=== PATIENT | male | born 1965 | race Caucasian/White ===

== ENCOUNTER → 2018-10-02 10:32 | Outpatient (CLI) | payer BC ==
[2016-10-05 07:14] VITALS: BMI 28.9
[~2018-10-02 10:32] MED LIST: BAYER CHEWABLE81 MG PO; BRILINTA90 MG; BRILINTA90 MG PO; DIOVAN HCT 160/1 TAB PO; FISH OIL 1,0001 CA1 PO; LIPITOR40 MG PO; PRILOSEC10 M1 PO; SAW PALMETTO450 MG PO; TOPROL XL25 MG; UNISOM; VITAMIN B-122500 MCG
== END | disposition home or self-care (01) ==
LOC: D.HCCARDIO 10:32
DX: I25.10 Atherosclerotic heart disease of native coronary artery without angina pectoris (principal)

== ENCOUNTER 2018-10-24 06:57 | Outpatient (CLI) | payer BC ==
[~2018-10-24] VITALS: Ht 188 cm; Wt 104.5 kg
--- NOTE | ~2018-10-24 | HEMODYNAMI ---
PATIENT:ESTEFANI BRAUN MEDICAL RECORD: [id number] : 69 LOCATION:D.CAT ADMISSION DATE: 10/24/18 Generatedon:10/24/20189:51 Patient name: ESTEFANI BRAUN Patient #: [id number] SSN: : 1965 Date of study: 10/24/2018 Page: Of Hemodynamic Procedure Report Patient Data Patient Demographics Procedure consent was obtained First Name: ESTEFANI Gender: Male Last Name: KADE : 1965 [facility] Initial: ANTHONY Age: 53 year(s) Patient #: [id number] Race: Additional ID: [id number] Contact details [address]: [address] [place] [address] State: [place] City: [place] Zip code: [address] Past Medical History Allergies: No known allergies Admission Admission Data Admission Date: 10/24/2018 Admission Time: 6:57 Weight (lbs.): 231.49 Weight (kg.): 105 Lab Results Lab Result Date: 10/24/2018 Lab Result Time: 0:00 Biochemistry Name Units Result Min Max BUN mg/dl 19 --(----)*- 7 18 Creatinine mg/dl 1 --(--*-)-- 0.6 1.3 CBC Name Units Result Min Max Hemoglobin g/dl 18.3 --(----)*- 13.5 17.5 Procedure Procedure Types Cath Procedure Diagnostic Procedure [facility] Procedure Description Procedure Date Procedure Date: 10/24/2018 Procedure Start Time: 9:29 Procedure End Time: 9:45 Procedure Staff Name Function Daniel Ji MD Performing Physician Darin Duong RT Monitor Kaz Rizzo RT Scrub Tre Sandoval RN Nurse Procedure Data Cath Procedure Fluoroscopy Diagnostic fluoroscopy Total fluoroscopy Time: 1.8 time: 1.8 min min Diagnostic fluoroscopy Total fluoroscopy dose: 600 dose: 600 mGy mGy Contrast Material Contrast Material Type Amount (ml) Isovue 300 62 Entry Location Entry Primary Successful Side Size Upsize Upsize Entry Closure Cooper ccessful Closure Location (Fr) 1 (Fr) 2 (Fr) Remarks Device Remarks Radial Right 6 Fr Mechanical artery Short Compression Estimated blood loss: 10 ml Diagnostic catheters Device Type Used For End Catheter Placement DIAGNOSTIC Gopal 110cm Procedure 5Fr catheter ([id number]) Procedure Complications No complications Procedure Medications Medication Administration Route Dosage Oxygen etCO2 Nasal cannula 2 l/min Lidocaine 2% added to field 20 Heparin Flush Bag added to field 2 bags (1000units/500ml NS) 0.9% NaCl I.V. 100 ml/hr Radial Cocktail I.A. 1 syringe (Verapomil 2mg/Nitro 400mcg/Heparin 1500units) Versed I.V. 2 mg Fentanyl I.V. 100 mcg Versed I.V. 2 mg Fentanyl I.V. 100 mcg Fentanyl I.V. 100 mcg Versed I.V. 2 mg Hemodynamics Rest HGB: 18.3 (g/dl) Heart Rate: 77 (bpm) Pressure Samples Time Site Value (mmHg) Purpose Heart Use Rate(bpm) 9:32 LV 167/-17,7 Snapshot 85 9:33 AO 145/86(111) Pullback 90 9:33 LV 204/-12,26 Pullback 90 9:34 AO 121/77(96) Snapshot 81 9:40 AO 128/80(101) Snapshot 87 Gradients Valve Time Site 1 Site 2 Mean SEP/DFP Peak To Heart Use (mmHg) (sec/min) Peak Rate (mmHg) (bpm) Aortic 9:33 LV AO 19 20 59 90 204/-12,26 145/86(111) Calculations Valve P-P Mean Valve Index Valve Source Name Gradient Area Flow (cm2) Aortic 59 19 59 19 Snapshots Pre Cath Intra NCS Post Cath Vital Signs Time Heart Resp SPO2 etCO2 NIBP (mmHg) Rhythm Pain Sedation Rate (ipm) (%) (mmHg) Status Level (bpm) 9:24:09 84 13 94 25.8 142/85(107) NSR 0 (11) 10(A) , No pain 9:28:33 75 13 91 16.7 154/80(105) NSR 0 (11) 10(A) , No pain 9:34:01 84 18 90 25.8 138/74(104) NSR 0 (11) 9(A) , No pain 9:38:25 88 15 95 46.3 133/84(113) NSR 0 (11) 10(A) , No pain 9:42:49 78 16 95 43.2 129/80(117) NSR 0 (11) 10(A) , No pain Medications Time Medication Route Dose Verified Delivered Reason Notes Effectiveness by by 9:21:41 Oxygen etCO2 2 l/min Daniel Daniel used for Nasal Garrison Ji MD procedure cannula 9:22:05 Lidocaine 2% added 20ml Daniel Daniel for local to vial Garrison Ji MD anesthetic field 9:22:13 Heparin Flush added 2 bags Daniel Daniel used for Bag to Garrison Ji MD procedure (1000units/500ml field NS) 9:22:50 0.9% NaCl I.V. 100 Daniel Buffie Per ml/hr Garrison Sandoval RN physician 9:26:55 Versed I.V. 2 mg Daniel Buffie for sedation Garrison Sandoval RN 9:27:01 Fentanyl I.V. 100 mcg Daniel Buffie for sedation Garrison Sandoval RN 9:30:37 Versed I.V. 2 mg Daniel Buffie for sedation Garrison Sandoval RN 9:30:41 Fentanyl I.V. 100 mcg Daniel Buffie for sedation Garrison Sandoval RN 9:31:30 Radial Cocktail I.A. 1 Adniel Daniel for (Verapomil syringe Garrison Ji MD vasodilation 2mg/Nitro 400mcg/Heparin 1500units) 9:34:37 Fentanyl I.V. 100 mcg Daniel Buffie for sedation Garrison Sandoval RN 9:39:46 Versed I.V. 2 mg Daniel Buffie for sedation Garrison Sandoval RN Procedure Log Time Note 8:53:13 Patient Weight : 231.49 lbs 8:53:56 Lab Result : Hemoglobin 18.3 g/dl 8:53:56 Lab Result : Creatinine 1 mg/dl 8:53:56 Lab Result : BUN 19 mg/dl 8:55:26 Darin Duong RT(R) sent for patient. Start room use. 9:03:10 Diagnostic Cath status Elective 9:03:11 Time tracking: Regular hours (M-F 7:00 - 5:00) 9:03:15 Plan of Care:Hemodynamics will remain stable., Cardiac rhythm will remain stable., Comfort level will be maintained., Respiratory function will remain adequate., Patient/ family verbilizes understanding of procedure., Procedure tolerated without complication., Recovers from procedure without complications.. 9:03:46 H&P Date Dictated: 10/24/2018 New H&P dictated by physician.. 9:09:49 Patient received from Pre/Post Procedure Room to CCL 1 Alert and oriented. Tansferred to table in Supine position. 9:09:50 Warm blankets applied, and valentino hugger turned on for patient comfort. 9:09:51 Correct patient and procedure confirmed by team. 9:09:52 Signed procedure consent form obtained from patient. 9:09:53 ECG and BP/O2 sat monitors applied to patient. 9::54 Pre-procedure instructions explained to patient. 9::54 Pre-op teaching completed and patient verbalized understanding. 9:09:56 Family in waiting room. 9:09:57 Patient NPO since Midnight. 9:21:41 Oxygen 2 l/min etCO2 Nasal cannula was administered by Daniel Ji MD; used for procedure; 9:22:05 Lidocaine 2% 20ml vial added to field was administered by Daniel Ji MD; for local anesthetic; 9:22:13 Heparin Flush Bag (1000units/500ml NS) 2 bags added to field was administered by Daniel Ji MD; used for procedure; 9:22:50 0.9% NaCl 100 ml/hr I.V. was administered by Tre Sandoval RN; Per physician; 9:22:51 Vital chart was started 9:23:04 Baseline sample Acquired. 9:23:09 Rhythm: sinus rhythm 9:23:11 Full Disclosure recording started 9:23:14 Is the patient allergic to Iodine/contrast media? No. 9:23:15 Is patient on blood thinner?No 9:23:17 Patient diabetic? No. 9:23:20 Previous problem with sedation/anesthesia? No ? 9:23:21 Snore? Yes 9:23:22 Sleep apnea? No 9:23:23 Deviated septum? No 9:23:29 Opens mouth fully? Yes 9:23:30 Sticks out tongue? Yes 9:23:32 Airway obstruction? No ? 9:23:35 Dentures? No ? 9:23:38 Pre procedure: right dorsailis pedis pulse 1+ Palpable, but thready & weak; easily obliterated 9:23:40 Modified Vikas's test Ulnar < 7 seconds 9:23:42 Patient pain scale 0/10 ?. 9:23:50 IV patent on arrival in left antecubital with 0.9% NaCl at [facility]. 9:23:52 Lab results completed and on chart. 9:23:55 Right Radial & Right Groin area was prepped with chlora-prep and draped in sterile fashion 9:23:56 Alarms reviewed by R. N. 9:23:57 Sharps counted by scrub and verified by R.N. 9:24:01 Use device set Radial Dx or PCI 9:24:04 Tegaderm 4 x 4 ([id number]) opened to sterile field. 9:24:05 ACIST Manifold (27542) opened to sterile field. 9:24:05 ACIST Hand Control (33047) opened to sterile field. 9:24:07 ACIST Syringe (51815) opened to sterile field. 9:24:07 Medline Cath Pack ([id number]) opened to sterile field. 9:24:07 Bag Decanter (2002S) opened to sterile field. 9:24:08 DIAGNOSTIC WIRE .035 260cm J wire (905954) opened to sterile field. 9:24:08 MBrace Wrist Support ([id number]) opened to sterile field. 9:24:09 NEEDLE Cook 21G 4cm Radial ([id number]) opened to sterile field. 9:24:10 SHEATH 6FR Slender (37-5541) opened to sterile field. 9:24:27 --------ALL STOP TIME OUT------ 9:24:28 Final Timeout: patient, procedure, and site verified with staff and physician. All members of the team are in agreement. 9:24:31 Right Radial & Right Groin site verified by team. 9:24:33 Physical assessment completed. ASA score P 2 - A patient with mild systemic disease as per Daniel Ji MD. 9:24:36 Sedation plan: IV Moderate Sedation Medication:Versed, Fentanyl 9:26:55 Versed 2 mg I.V. was administered by Tre Sandoval RN; for sedation; 9:27:01 Fentanyl 100 mcg I.V. was administered by Tre Sandoval RN; for sedation; 9:29:47 Procedure started. 9:29:54 Local anesthetic to right radial artery with Lidocaine 2% by Daniel Ji MD.INITIAL ACCESS ONLY 9:30:37 Versed 2 mg I.V. was administered by Tre Sandoval RN; for sedation; 9:30:41 Fentanyl 100 mcg I.V. was administered by Tre Sandoval RN; for sedation; 9::54 A 6 Fr Short sheath was inserted into the Right Radial artery 9:31:30 Radial Cocktail (Verapomil 2mg/Nitro 400mcg/Heparin 1500units) 1 syringe I.A. was administered by Daniel Ji MD; for vasodilation; 9:32:01 A DIAGNOSTIC Bapul 110cm 5Fr catheter ([id number]) was advanced over the wire and used for Procedure. 9:32:58 LV angiography performed. 9:32:59 LV gram done using GOLDMAN 9:33:21 EF : 60 % 9:33:23 LV hemodynamics recorded. 9:33:32 Injector settings: Ml/sec: 5, Volume: 10, 9:33:45 LCA angiography performed. 9:34:37 Fentanyl 100 mcg I.V. was administered by Tre Sandoval RN; for sedation; 9:34:51 RCA angiography performed. 9:39:46 Versed 2 mg I.V. was administered by Tre Sandoval RN; for sedation; 9:40:37 Catheter exchanged over wire. 9:40:39 TR BAND Standard ([id number]) opened to sterile field. 9:40:54 Sheath removed intact; hemostasis achieved with Mechanical Compression to the Right Radial artery. 9:41:30 Procedure ended.(Physican Out) 9:42:44 Fluoroscopy time 01.80 minutes. 9:42:47 Fluoroscopy dose: 600 mGy 9:42:47 Flurop Dose total: 600 9:42:51 Contrast amount:Isovue 300 62ml. 9:42:52 Sharps counted by scrub and verified by R.N. 9:42:55 TR band inflated with 10cc of air. 9:42:56 Insertion/operative site no bleeding no hematoma. 9:42:58 Post Procedure Pulses reassessed and unchanged 9:43:01 Post-procedure physical assessment completed. ASA score P 2 - A patient with mild systemic disease as per Daniel Ji MD. 9:43:03 Post procedure rhythm: unchanged. 9:43:11 Estimated blood loss: 10 ml 9:43:17 Post procedure instruction explained to patient.Patient verbalizes understanding. 9:43:18 Patient needs reinforcement of post procedure teaching. 9:43:53 Procedure and supply charges have been captured, reviewed, submitted and are correct. 9:43:58 Procedure Complication : No complications 9:44:51 Vital chart was stopped 9:44:51 See physician's report for complete and final results. 9:44:54 Report given to Pre/Post Procedure Room. 9:44:57 Patient transfered to Pre/Post Procedure Room with Stretcher. 9:44:59 Procedure ended. 9:44:59 Full Disclosure recording stopped 9:45:06 End room use (Document Last) Device Usage Item Name Manufacture Quantity Catalog Hospital Part Current Minimal Lot# / Number Charge Number Stock Stock Serial# Code Tegaderm 4 1 1626W 105888 710873 219329 5 x 4 (1626W) ACIST Acist 1 62171 950345 265566 370725 5 Manifold Medical (06485) Systems Inc ACIST Hand Acist 1 91134 859311 675384 537924 5 Control Medical (26856) Systems Inc ACIST Acist 1 64012 765250 086976 707450 20 Syringe Medical (16633) Systems Inc Medline Medline 1 [id number] 029886 02295 641990 5 Cath Pack ([id number]) Bag Microtek 1 2001S 119977 00845 583931 5 Decanter Medical Inc. (2001S) DIAGNOSTIC [facility] 1 717890 833821 317241 572058 30 WIRE .035 260cm J wire (707557) MBrace Advanced 1 140-0250-00 463088 11328 021552 5 Wrist Vascular Support Dynamics ([id number]) NEEDLE Universal Robotics Medical 1 X52655 974371 607583 593436 5 21G 4cm Radial (U44124) SHEATH 6FR Terumo 1 [id number] 067415 946971 272595 5 Slender (80-1060) DIAGNOSTIC Terumo 1 40-3482 767571 399552 145339 5 Gopal 110cm 5Fr catheter (836088) TR BAND Terumo 1 [id number] 459631 214178 424537 40 Standard ([id number]) Signature Audit [place] Stage Time Signature Unsigned Intra-Procedure 10/24/2018 Darin Duong 9:51:10 AM RT(R) Signatures Monitor : Darin Duong RT Signature : Date : Time : [place] [id number] [place] [address]
[2018-10-24 07:24] VITALS: BP 141/79; Ht 188 cm; Wt 104.5 kg
[2018-10-24 07:46] LABS: CALC OSMOLALITY 287 mosm/kg (275-300); CALCIUM 9.7 mg/dL (8.5-10.1); CARBON DIOXIDE 25.1 mmol/L (21.0-32.0); CHLORIDE - SERUM 104 mmol/L (98-107); GLUCOSE 120 mg/dL (74-106); POTASSIUM - SERUM 3.9 mmol/L (3.5-5.1); SODIUM 143 mmol/L (136-145); UREA NITROGEN 19 mg/dL (7-18); eGFR NON AFRICAN AMERICAN 84 mL/min (90-120)
[2018-10-24 07:53] LABS: HEMATOCRIT 50.4 % (42.0-54.0); HEMOGLOBIN 18.3 g/dL (13.5-17.5); LYMPHOCYTES 28.9 % (15-50); MCH 33.8 pg (26.0-34.0); MCHC 36.3 g/dL (31.0-37.0); MCV 93.2 fL (80.0-100.0); MEAN PLATELET VOLUME 9.7 fL (7.4-10.4); NEUTROPHILS 64.1 % (40-80); PLATELET COUNT 129 10x3/uL (130-400); RBC 5.41 10x6/uL (4.20-6.10); RDW 12.5 % (11.5-14.5); WBC 9.7 10x3/uL (4.8-10.8)
--- NOTE | 2018-10-24 10:17 | NUR ---
1000 PT IS ALERT, DENIES ANY C/O. SANDWICH AND PO FLUIDS SERVED. TR BAND IS CDI, FINGERS WARM AND CAP REFILL IS BRISK. RADIAL PULSE PALPABLE. AT BEDSIDE, VSS. 1015 PT REQUESTS ADDITIONAL PO FLUIDS AND THIS SERVED. TR BAND IS CDI, PULSE PALPABLE TO RIGHT HAND, FINGERS WARM AND CAP REFILL IS BRISK. FRANCISCO SANDWICH WITH NO C/O NAUSEA.
--- NOTE | 2018-10-24 10:43 | NUR ---
PT SLEEPING, RESP WITH EASE ON ROOM AIR. NSR, RATE IS 66, BP IS 110/42. TR BAND CDI, FINGERS WARM AND PULSES PALPABLE. AT BEDSIDE, CALL LIGHT IN REACH.
--- NOTE | 2018-10-24 11:07 | NUR ---
3 CC OF AIR WEANED FROM TR ABND WITH NO BLEEDING NOTED. FINGERS WARM AND CAP REFILL IS BRISK. AT BEDSIDE. CALL LIGHT IN REACH.
--- NOTE | 2018-10-24 11:31 | NUR ---
4 CC OF AIR WEANED FROM TR BAND WITH NO BLEEDING NOTED. PULSES PALPABLE. VSS. PT DENIES ANY C/O.
--- NOTE | 2018-10-24 12:59 | NUR ---
1155 ALL REMAINING AIR WEANED FROM TR BAND WITH NO BLEEDING NOTED. PULSES PALPABLE, CAP REFILL IS BRISK. PT DENIES ANY C/O. IV DC'D WITH CATH INTACT AND PT DRESSING FOR DC TO HOME WITH ASSIST. 1215 PT HAS DRESSED FOR DC TO HOME. 2X2 AND TEGADERM CDI TO RIGHT WRIST. PT AMBULATED TO THE BATHROOM AND VOIDED QS. 1225 DC INSTRUCTIONS REVIEWED WITH PT AND WHO VEBALIZE UNDERSTANDING. DRESSING CDI TO RIGHT WRIST. PULSES PALPABLE, FINGERS WARM, PT DENIES ANY NV DEFICIT. PT ESCORTED TO PRIVATE AUTO VIA WC BY NURSE WITH DRIVING HIM HOME.
== END 2018-10-24 12:25 | disposition home or self-care (01) ==
LOC: D.CATH 06:57
PROVIDERS: Internal Medicine Cardiovascular Disease
DX: I25.110 Atherosclerotic heart disease of native coronary artery with unstable angina pectoris (principal); R94.30 Abnormal result of cardiovascular function study, unspecified; E78.5 Hyperlipidemia, unspecified; I10 Essential (primary) hypertension

== ENCOUNTER → 2021-02-11 08:05 | Outpatient (CLI) | payer BC ==
[2018-10-24 07:24] VITALS: BMI 29.6
== END | disposition home or self-care (01) ==
LOC: D.HCCARDIO 08:05
PROVIDERS: ATTEND Internal Medicine Cardiovascular Disease
DX: I10 Essential (primary) hypertension (principal)

== ENCOUNTER 2021-02-16 11:47 | Day surgery (SDC) | payer BC ==
[~2021-02-16] VITALS: Ht 188 cm; Wt 114.6 kg
--- NOTE | ~2021-02-16 | HEMODYNAMI ---
PATIENT:ESTEFANI BRAUN MEDICAL RECORD: [id number] : 69 LOCATION:[facility] ADMISSION DATE: 02/16/21 Generatedon:114:33 Patient name: ESTEFANI BRAUN Patient #: [id number] SSN: : 1965 Date of study: 02/16/2021 Page: Of Hemodynamic Procedure Report Patient Data Patient Demographics Procedure consent was obtained First Name: ESTEFANI Gender: Male Last Name: KADE : 1965 Middle Initial: ANTHONY Age: 55 year(s) Patient #: [id number] Race: Additional ID: [id number] Contact details [address]: [address] [place] [address] State: [place] City: [place] Zip code: [address] Past Medical History Allergies: No known allergies Admission Admission Data Admission Date: 02/16/2021 Admission Time: 11:47 Admit Source: Other Insurance Payor: Private health insurance Height (in.): 74 BSA: 2.4 (m2) Height (cm.): 187.96 BMI: 32.45 (kg/m2) Weight (lbs.): 252.72 Weight (kg.): 114.63 Lab Results Lab Result Date: 02/16/2021 Lab Result Time: 0:00 Biochemistry Name Units Result Min Max Creatinine mg/dl 1 --(--*-)-- 0.6 1.3 CBC Name Units Result Min Max Hemoglobin g/dl 17.5 --(---*)-- 13.5 17.5 Procedure Procedure Types Cath Procedure Diagnostic Procedure LHC LHC w/Coronaries FFR/IVUS FFR Initial FFR Additional Aortic Root Angiography Sedation Charges Moderate Sedation 10-24 minutes Procedure Description Procedure Date Procedure Date: 02/16/2021 Procedure Start Time: 14:06 Procedure End Time: 14:31 Procedure Staff Name Function Daniel Ji MD Performing Physician Gladys Michele RT Monitor Tre Sandoval RN Nurse Demar Ruiz RN Nurse Radha Indra RT Scrub Procedure Data Cath Procedure Fluoroscopy Diagnostic fluoroscopy Total fluoroscopy Time: 5.4 time: 5.4 min min Diagnostic fluoroscopy Total fluoroscopy dose: 957 dose: 957 mGy mGy Contrast Material Contrast Material Type Amount (ml) Isovue 370 66 Entry Location Entry Primary Successful Side Size Upsize Upsize Entry Closure Succes sful Closure Location (Fr) 1 (Fr) 2 (Fr) Remarks Device Remarks Radial Right 6 Fr Exoseal artery Short Estimated blood loss: 5 ml Diagnostic catheters Device Type Used For End Catheter Placement DIAGNOSTIC [place] 110cm 5 LV Angiography Fr catheter ([id number]) DIAGNOSTIC [place] 110cm 5 Left Coronary Fr catheter (658506) Angiography DIAGNOSTIC [place] 110cm 5 Right Coronary Fr catheter (257888) Angiography DIAGNOSTIC Pigtail 5Fr Aortic Root catheter ([id number]) Angiography Procedure Complications No complications Procedure Medications Medication Administration Route Dosage 0.9% NaCl I.V. 100 ml/hr Heparin Flush Bag added to field 2 bags (1000units/500ml NS) Lidocaine 2% added to field 20 Oxygen etCO2 Nasal cannula 2 l/min Radial Cocktail added to field 1 syringe (Verapamil 2mg/Nitro 400mcg/Heparin 1500units) Fentanyl I.V. 50 mcg Versed I.V. 1 mg Fentanyl I.V. 50 mcg Versed I.V. 1 mg Versed I.V. 1 mg Fentanyl I.V. 50 mcg Fentanyl I.V. 50 mcg Versed I.V. 1 mg Heparin Bolus 5000 units Hemodynamics Rest BSA: 2.4 (m2) HGB: 17.5 (g/dl) O2 Consumption: Estimated: 275.55 (ml/min) O2 Con sumption indexed: Estimated:114.81 (ml/min/m) Heart Rate: 59 (bpm) Pressure Samples Time Site Value (mmHg) Purpose Heart Use Rate(bpm) 14:09 LV 66/-13,66 Snapshot 86 Gradients Valve Time Site Site Mean SEP/DFP Peak To Heart Use 1 2 (mmHg) (sec/min) Peak Rate (mmHg) (bpm) Aortic 14:09 LV AO 63 Snapshots Pre Cath Intra NCS Post Cath Vital Signs Time Heart Resp SPO2 etCO2 NIBP (mmHg) Rhythm Pain Sedation Rate (ipm) (%) (mmHg) Status Level (bpm) 13:37:58 56 19 97 34.6 149/87(119) SB 0 (11) 10(A) , No pain 13:42:25 58 14 96 36.9 144/87(111) SB 0 (11) 10(A) , No pain 13:46:47 58 15 94 36.8 146/89(110) SB 0 (11) 10(A) , No pain 13:51:09 57 14 94 36.1 146/92(121) SB 0 (11) 10(A) , No pain 13:55:37 57 16 95 36.1 143/85(113) SB 0 (11) 10(A) , No pain 13:59:59 59 13 94 36.9 132/81(108) SB 0 (11) 10(A) , No pain 14:04:22 57 16 94 32.4 143/87(123) SB 0 (11) 10(A) , No pain 14:08:52 132 13 93 38.4 124/80(94) ST 0 (11) 10(A) , No pain 14:13:12 66 12 93 42.1 142/84(110) NSR 0 (11) 10(A) , No pain 14:17:42 60 11 94 40.7 134/76(114) NSR 0 (11) 10(A) , No pain 14:22:07 68 12 94 39.9 145/81(114) NSR 0 (11) 10(A) , No pain 14:26:33 60 14 95 39.9 143/76(110) NSR 0 (11) 10(A) , No pain 14:30:57 96 40.6 136/78(109) NSR 0 (11) 10(A) , No pain Medications Time Medication Route Dose Verified Delivered Reason Not es Effectiveness by by 13:36:55 0.9% NaCl I.V. 100 Daniel Demar used for ml/hr Garrison Ruiz boat engines installer 13:37:09 Heparin Flush added 2 bags Daniel Daniel used for Bag to Garrison Ji MD procedure (1000units/500ml field NS) 13:37:38 Lidocaine 2% added 20ml Daniel Daniel for local to vial Garrison Ji MD anesthetic field 13:37:57 Oxygen etCO2 2 l/min Daniel Demar used for Nasal Garrison Ruiz boat engines installer cannula 13:43:31 Radial Cocktail added 1 Daniel Daniel used for (Verapamil to syringe Garrison Ji MD procedure 2mg/Nitro field 400mcg/Heparin 1500units) 14:03:12 Fentanyl I.V. 50 mcg Daniel Demar for sedation Garrison Ruiz RN 14:03:22 Versed I.V. 1 mg Daniel Demar for sedation Garrison Ruiz RN 14:06:02 Fentanyl I.V. 50 mcg Daniel Demar for sedation Garrison Ruiz RN 14:06:08 Versed I.V. 1 mg Daniel Demar for sedation Garrison Ruiz RN 14:07:39 Versed I.V. 1 mg Daniel Demar for sedation Garrison Ruiz RN 14:07:42 Fentanyl I.V. 50 mcg Daniel Demar for sedation Garrison Ruiz RN 14:13:47 Fentanyl I.V. 50 mcg Daniel Demar for sedation Garrison Ruiz RN 14:13:52 Versed I.V. 1 mg Daniel Demar for sedation Garrison Ruiz RN 14:19:29 Heparin Bolus 5000 Daniel Demar for korey ified units Garrison Ruiz RN anticoagulation per florence vaughanharness brusher Log Time Note 13:25:06 Tre Sandoval RN sent for patient. Start room use. 13:29:13 Patient Height : 74 inches 13:29:21 Patient Weight : 252.72 lbs 13:29:28 Admit Source: Other 13:29:35 Insurance Payor : Private health insurance 13:30:04 Procedure Status Elective Heart Cath (OP). 13:30:12 Time tracking: Regular hours (M-F 7:00 - 5:00) 13:30:21 Plan of Care:Hemodynamics will remain stable., Cardiac rhythm will remain stable., Comfort level will be maintained., Respiratory function will remain adequate., Patient/ family verbilizes understanding of procedure., Procedure tolerated without complication., Recovers from procedure without complications.. 13:30:28 Patient received from Pre/Post Procedure Room to CCL 1 Alert and oriented. Tansferred to table in Supine position. 13:30:30 Signed procedure consent form obtained from patient. 13:30:31 Warm blankets applied, and valentino hugger turned on for patient comfort. 13:30:31 Correct patient and procedure confirmed by team. 13:30:32 ECG and BP/O2 sat monitors applied to patient. 13:30:34 Full Disclosure recording started 13:30:46 H&P Date Dictated: 01/21/2021 Within 30 days and on chart., H&P Addendum completed by physician on day of procedure. (MUST COMPLETE FOR ALL OUTPATIENTS). 13:30:47 Pre-procedure instructions explained to patient. 13:30:48 Pre-op teaching completed and patient verbalized understanding. 13:30:50 Family in waiting room. 13:30:52 Patient NPO since Midnight. 13:31:02 Patient allergic to No known allergies 13:31:04 Is the patient allergic to Iodine/contrast media? No. 13:31:07 Is patient on blood thinner?No 13:31:14 Patient diabetic? No. 13:31:19 Snore? Yes 13:31:21 Sleep apnea? No 13:31:23 Previous problem with sedation/anesthesia? No ? 13:31:39 Deviated septum? No 13:31:40 Opens mouth fully? Yes 13:31:40 Sticks out tongue? Yes 13:31:55 Airway obstruction? Yes Sleep apnea 13:32:00 Dentures? No ? 13:32:03 Pre procedure: right dorsailis pedis pulse 2+ Normal; easily identifiable; not easily obliterated 13:32:10 Modified Vikas's test Ulnar < 7 seconds 13:32:12 Patient pain scale 0/10 ?. 13:32:20 IV patent on arrival in left hand with 0.9% NaCl at [facility]. 13:32:32 Lab results completed and on chart. 13:32:52 Lab Result : Creatinine 1 mg/dl 13:32:52 Lab Result : Hemoglobin 17.5 g/dl 13:36:37 Vital chart was started 13:36:55 0.9% NaCl 100 ml/hr I.V. was administered by Demar Ruiz RN; used for procedure; Verbal order read back and verified. 13:37:09 Heparin Flush Bag (1000units/500ml NS) 2 bags added to field was administered by Daniel Ji MD; used for procedure; Verbal order read back and verified. 13:37:38 Lidocaine 2% 20ml vial added to field was administered by Daniel Ji MD; for local anesthetic; Verbal order read back and verified. 13:37:57 Oxygen 2 l/min etCO2 Nasal cannula was administered by Demar Joseph RN; used for procedure; Verbal order read back and verified. 13:39:08 Bleeding risk 0.6%. 13:39:38 Stress Test: yes; abnormal reversible inferior and apical defect 13:39:42 Risk of Mortality: 0.1 13:39:45 Risk of blood transfusion: 0.1 13:39:48 Risk of KOFI: 0.6 13:40:16 Right Radial & Right Groin area was prepped with chlora-prep and draped in sterile fashion 13:40:18 Alarms reviewed by R. N. 13:40:19 Sharps counted by scrub and verified by R.N. 13:42:52 Baseline sample Acquired. 13:42:58 Use device set Radial Dx or PCI 13:42:59 ACIST Syringe (62301) opened to sterile field. 13:42:59 Medline Cath Pack ([id number]) opened to sterile field. 13:43:00 Bag Decanter (2002S) opened to sterile field. 13:43:00 ACIST Hand Control (76708) opened to sterile field. 13:43:01 ACIST Manifold (08531) opened to sterile field. 13:43:02 MBrace Wrist Support ([id number]) opened to sterile field. 13:43:03 NEEDLE Cook 21G 4cm Radial (O16701) opened to sterile field. 13:43:06 SHEATH 6FR RAIN (9548839) opened to sterile field. 13:43:07 EMERALD Guide Wire (436-892) opened to sterile field. 13:43:31 Radial Cocktail (Verapamil 2mg/Nitro 400mcg/Heparin 1500units) 1 syringe added to field was administered by Daniel Ji MD; used for procedure; Verbal order read back and verified. 13:59:34 Zero performed for pressure channel P1 13:59:44 Physician arrived 14:03:09 Final Timeout: patient, procedure, and site verified with staff and physician. All members of the team are in agreement. 14:03:10 Right Radial & Right Groin site verified by team. 14:03:12 Fentanyl 50 mcg I.V. was administered by Demar Ruiz RN; for sedation; Verbal order read back and verified. 14:03:19 Fire Safety Assessment: A--An alcohol-based skin anteseptic being used preoperatively., C--Open oxygen or nitrous oxide is being used., D--An ESU, laser, or fiber-optic light is being used. 14:03:21 Physical assessment completed. ASA score P 2 - A patient with mild systemic disease as per Daniel Ji MD. 14:03:22 Versed 1 mg I.V. was administered by Demar Ruiz RN; for sedation; Verbal order read back and verified. 14:04:33 2) 60-89 Mildly reduced kidney function, and other findings (as for stage 1) point to kidney disease. 14:04:36 Maximum allowable contrast dose (3.7 X eGFR X 0.75)230 ml. 14:04:39 Sedation plan: IV Moderate Sedation Medication:Versed, Fentanyl 14:05:51 Procedure started. 14:06:02 Fentanyl 50 mcg I.V. was administered by Demar Ruiz RN; for sedation; Verbal order read back and verified. 14:06:08 Versed 1 mg I.V. was administered by Demar Ruiz RN; for sedation; Verbal order read back and verified. 14:06:33 Local anesthetic to right radial artery with Lidocaine 2% by Daniel Ji MD.INITIAL ACCESS ONLY 14:06:50 A 6 Fr Short sheath was inserted into the Right Radial artery 14:07:39 Versed 1 mg I.V. was administered by Demar Ruiz RN; for sedation; Verbal order read back and verified. 14:07:42 Fentanyl 50 mcg I.V. was administered by Demar Ruiz RN; for sedation; Verbal order read back and verified. 14:08:09 A DIAGNOSTIC [place] 110cm 5 Fr catheter ([id number]) was advanced over the wire and used for LV Angiography. 14:09:31 EF : 60 % 14:09:57 A DIAGNOSTIC [place] 110cm 5 Fr catheter (105171) was advanced over the wire and used for Left Coronary Angiography. 14:12:06 A DIAGNOSTIC [place] 110cm 5 Fr catheter (128707) was advanced over the wire and used for Right Coronary Angiography. 14:12:30 Catheter removed. 14:13:19 A DIAGNOSTIC Pigtail 5Fr catheter ([id number]) was advanced over the wire and used for Aortic Root Angiography. 14:13:47 Fentanyl 50 mcg I.V. was administered by Demar Ruiz RN; for sedation; Verbal order read back and verified. 14:13:52 Versed 1 mg I.V. was administered by Demar Ruiz RN; for sedation; Verbal order read back and verified. 14:14:18 Aortic Root visualized 14:15:06 Catheter removed. 14:17:24 GUIDE 5FR EBU 3.75 catheter ([id number]) opened to sterile field. 14:17:24 TUBING High Pressure Extension Tubing (Garrison) ([id number]) opened to sterile field. 14:17:26 Ipava OmniWire (82489) opened to sterile field. 14:17:35 INFLATOR Merit BasixCompak (AS7692) opened to sterile field. 14:18:32 5 Fr EBU 3.75 guide catheter was inserted over the wire 14:19:29 Heparin Bolus 5000 units was administered by Demar Ruiz RN; for anticoagulation; verified per florence vaughan Verbal order read back and verified. 14:20:02 Pressure wire advanced. 14:21:33 Wire advanced across lesion. 14:23:36 WIRE REDIRECTED TO CIRC 14:24:13 Wire removed. 14:24:22 Guide catheter removed. 14:24:37 Sheath removed intact; hemostasis achieved with Exoseal to the Right Radial artery. 14:24:59 Procedure ended.(Physican Out) 14:25:15 Fluoroscopy time 05.40 minutes. 14:25:21 Fluoroscopy dose: 957 mGy 14:25:21 Flurop Dose total: 957 14:25:25 Dose Area Product 84.8 mGy/cm. 14:25:30 Contrast amount:Isovue 370 66ml. 14:25:39 ZEPHYR REGULAR TR BAND (744805) opened to sterile field. 14:25:54 Maximum allowable dose exceeded? No. 14:25:55 Sharps counted by scrub and verified by R.N. 14:25:59 Independence band inflated with 10cc of air. 14:26:00 Insertion/operative site no bleeding no hematoma. 14:26:07 Post right radial artery:stable, clean and dry 14:26:33 Post Procedure Pulses reassessed and unchanged 14:26:40 Post-procedure physical assessment completed. ASA score P 2 - A patient with mild systemic disease as per Daniel Ji MD. 14:26:43 Post procedure rhythm: unchanged. 14:26:45 Estimated blood loss: 5 ml 14:26:46 Post procedure instruction explained to patient.Patient verbalizes understanding. 14:26:47 Patient needs reinforcement of post procedure teaching. 14:27:19 Procedure type changed to Cath procedure, Diagnostic procedure, LHC, LHC w/Coronaries, FFR/IVUS, FFR Initial, FFR Additional, Aortic Root Angiography, Sedation Charges, Moderate Sedation 10-24 minutes 14:27:43 Procedure and supply charges have been captured, reviewed, submitted and are correct. 14:28:08 Procedure Complication : No complications 14:28:12 Operative report dictated upon procedure completion. 14:28:12 See physician's report for complete and final results. 14:30:47 ACT drawn and resulted at 384 seconds. (normal therapeutic range 180-240 seconds). 14:31:23 Report given to Pre/Post Procedure Room. 14:31:28 Patient transfered to Pre/Post Procedure Room with Stretcher. 14:31:31 Procedure ended. 14:31:31 Full Disclosure recording stopped 14:32:54 Gladys Counts RT(R) was relieved by Gladys Counts RT(R) as monitoring person 14:33:18 Gladys Counts RT(R) was relieved by Gladys Counts RT(R) as monitoring person 14:33:55 Vital chart was stopped Device Usage Item Name Manufacture Quantity Catalog Hospital Part Current Minima l Lot# / Number Charge Number Stock Stock Serial# Code ACIST Acist 1 36465 545835 992294 [id number] 20 Syringe Medical (69286) Systems Inc Medline Medline 1 [id number] 860899 26833 132398 5 Cath Pack ([id number]) Bag Microtek 1 054269 31645 012878 5 Decanter Medical Inc. () ACIST Hand Acist 1 90823 428572 269970 602709 5 Control Medical (32418) Systems Inc ACIST Acist 1 25771 100346 585037 598597 5 Manifold Medical (48616) Systems Inc MBrace Advanced 1 140-0250-00 335999 74199 070888 5 Wrist Vascular Support Dynamics ([id number]) NEEDLE OnSwipe Medical 1 P71691 132473 592831 647146 5 21G 4cm Radial (K10519) SHEATH 6FR Cardinal 1 2392461 814874 8617391 916761 5 [facility] (8172011) EMERALD Cardinal 1 502-455 729389 412836 068482 5 Guide Wire Health (502-549) DIAGNOSTIC Terumo 1 40-5013 595765 433057 558549 5 [place] 110cm 5 Fr catheter (923073) DIAGNOSTIC Cardinal 1 [id number] 168165 628359 285436 5 Pigtail 5Fr Health catheter (809280J) GUIDE 5FR Medtronic 1 [id number] 384349 706783 242371 1 EBU 3.75 catheter ([id number]) TUBING High Merit 1 [id number] 143922 69992 958962 10 Pressure Medical Extension Tubing (Ji) ([id number]) Ipava Ipava 1 9379954 412751 04503 9949 5 OmniWire (82418) INFLATOR Merit 1 CF0384 139956 368327 524045 15 Merit Medical BasixCompak (FW3939) ZEPHYR Cardinal 1 580512 225367 8777759 013385 5 REGULAR TR Health BAND (104083) Signature Audit [place] Stage Time Signature Unsigned Intra-Procedure 02/16/2021 Demar Ruiz RN 2:32:41 PM Intra-Procedure 02/16/2021 Gladys 2:33:11 PM Counts RT(R) Intra-Procedure 02/16/2021 Daniel Ji MD 2:33:54 PM [id number] [place] [address]
[2021-02-16] MEDS ORDERED: LOPRESSOR25 MG PO (12:19)
[2021-02-16] MEDS ORDERED: VALSARTAN PO (12:21)
[2021-02-16] MEDS ORDERED: LIPITOR40 MG PO (12:21)
[2021-02-16] MEDS ORDERED: HYDROCHLOROTHIAZIDE PO (12:21)
[2021-02-16 12:34] VITALS: BP 148/85; Ht 188 cm; Wt 114.6 kg
[2021-02-16 12:50] LABS: BASOPHILS 0.6 % (0-2); EOSINOPHILS 1.9 % (0-7); HEMATOCRIT 49.5 % (42.0-54.0); HEMOGLOBIN 17.5 g/dL (13.5-17.5); IMMATURE GRANULOCYTES 0.3 % (0-5); LYMPHOCYTE ABS# 3.22 10x3/uL (1.32-3.57); LYMPHOCYTES 47.9 % (15-50); MCH 33.3 pg (26.0-34.0); MCHC 35.4 g/dL (31.0-37.0); MCV 94.1 fL (80.0-100.0); MEAN PLATELET VOLUME 10.7 fL (7.4-10.4); MONOCYTES 7.1 % (2-11); NEUTROPHIL ABS# 2.83 10x3/uL (1.78-5.38); NEUTROPHILS 42.2 % (40-80); PLATELET COUNT 106 10x3/uL (130-400); RBC 5.26 10x6/uL (4.20-6.10); RDW 12.8 % (11.5-14.5); WBC 6.7 10x3/uL (4.8-10.8)
[2021-02-16 12:59] LABS: ALT (SGPT) 65 U/L (10-68); CALC OSMOLALITY 278 mosm/kg (275-300); CALCIUM 9.4 mg/dL (8.5-10.1); CHLORIDE - SERUM 102 mmol/L (98-107); CHOL - HDL RATIO 2.8 ratio (2.3-4.9); CHOLESTEROL, TOTAL 163 mg/dL (0-200); GLUCOSE 105 mg/dL (74-106); HDL CHOLESTEROL 59 mg/dL (32-96); LDL CHOLESTEROL 69 mg/dL (0-100); LDL-HDL RATIO 1.2 ratio (1.5-3.5); POTASSIUM - SERUM 4.1 mmol/L (3.5-5.1); SODIUM 140 mmol/L (136-145); TRIGLYCERIDE 178 mg/dL (30-200); UREA NITROGEN 12 mg/dL (7-18); eGFR NON AFRICAN AMERICAN 83 mL/min (90-120)
--- NOTE | 2021-02-16 14:37 | NUR ---
PT REC'D TO CATH RECOVERY ROOM 4 VIA STRETCHER. MONITORS ESTAB. AT BS. SEE DEPARTMENT CHAIR FLOWSHEETS. ALARMS ON AND C/L IN REACH.
--- NOTE | 2021-02-16 14:50 | NUR ---
R Z BAND SITE C/D/I, NO S/S BLEEDING OR SWELLING. R ARM/HAND WARM WITH PALP PULSES AND BRISK CAP REFILL. VSS. PT DENIES PAIN OR NEEDS. AT BS. ALARMS ON.
--- NOTE | 2021-02-16 14:55 | NUR ---
PT SITTING UP IN BED, GIVEN SANDWICH TRAY AND WATER PER REQUEST.
--- NOTE | 2021-02-16 15:20 | NUR ---
R WRIST Z BAND SITE C/D/I, NO S/S BLEEDING OR HEMATOMA. R ARM/HAND WARM WITH PALP PULSES AND BRISK CAP REFILL. VSS. PT DENIES PAIN OR NEEDS. ALARMS ON AND C/L IN REACH.
--- NOTE | 2021-02-16 15:35 | NUR ---
DR. ACEVEDO IN TO SEE PT, UPDATE GIVEN AND QUESTIONS ANSWERED. R WRIST SITE C/D/I, NO S/S BLEEDING OR HEMATOMA. PULSES PALP. PT DENIES PAIN OR NEEDS.. VSS. C/L IN REACH.
--- NOTE | 2021-02-16 16:05 | NUR ---
R WRIST ZBAND SITE C/D/I, NO S/S BLEEDING OR HEMATOMA. PULSES PALP. VSS. ALARMS ON AND C/L IN REACH.
--- NOTE | 2021-02-16 16:20 | NUR ---
5CC AIR REMOVED FROM Z BAND, NO S/S BLEEDING OR HEMATOMA. PULSES PALP, PT VERBALIZES UNDERSTANDING OF S/S TO REPORT TO NURSE. AT BS. ALARMS ON.
--- NOTE | 2021-02-16 16:50 | NUR ---
ALL AIR REMOVED FROM ZBAND. NO S/S BLEEDING OR HEMATOMA, PULSES PALP. VSS. ALARMS ON AND C/L IN REACH.
--- NOTE | 2021-02-16 17:00 | NUR ---
R Z BAND REMOVED, NO S/S BLEEDING OR HEMATOMA, DSG APPLIED. PIV D/C'D INTACT, DSG APPLIED.
--- NOTE | 2021-02-16 17:11 | NUR ---
ALL DISCHARGE INSTRUCTIONS REVIEWED WITH PT AND HIS , INCLUDING RESTRICTIONS, MEDS AND F/U APPT. BOTH VERBALIZE UNDERSTANDING.
--- NOTE | 2021-02-16 17:13 | NUR ---
PT ALLOWED UP TO GET DRESSED AND GO TO BR INDEPENDENTLY.
--- NOTE | 2021-02-16 17:21 | NUR ---
PT D/C'D TO PRIVATE VEHICLE WITH ALL PAPERWORK AND BELONGINGS.
== END 2021-02-16 17:21 | disposition home or self-care (01) ==
LOC: D.CATH 11:47
PROVIDERS: ATTEND Internal Medicine Cardiovascular Disease
DX: I25.118 Atherosclerotic heart disease of native coronary artery with other forms of angina pectoris (principal); R94.39 Abnormal result of other cardiovascular function study; I10 Essential (primary) hypertension